=== PATIENT | female | born 1970 | race Caucasian/White ===

== ENCOUNTER 2021-09-10 21:53 | Emergency (ER) | payer OTHER ==
[~2021-09-10] VITALS: Ht 162.6 cm; Wt 88.0 kg
[2021-09-10 23:24] VITALS: BP 138/87
--- NOTE | 2021-09-10 23:45 | PHYS DOC ---
Past Medical History Past Surgical History: Cholecystectomy, Hysterectomy Additional Past Surgical Histo: LEFT SHOULDER, BLADDER Smoking Status: Never Smoker Alcohol Use: None General Adult EDM: Chief Complaint: WRIST PAIN HPI: HPI: Patient is a 51 year old female who presents with right-sided dorsal hand pain after falling earlier tonight. She has a large soft tissue swelling and contusion on the dorsum of her hand. Denies numbness or tingling. She denies wrist pain. She denies head injury, loss of consciousness, dizziness, denies motor weakness. No other injuries or complaints reported. No meds taken prior to arrival. She is right-hand dominant. Review of Systems: Review of Systems: Constitutional: Denies fever or chills. [] HENT: Denies nasal congestion or sore throat. [] Respiratory: Denies cough or shortness of breath. [] Cardiovascular: Denies chest pain or edema. [] GI: Denies abdominal pain, nausea, vomiting Musculoskeletal: Reports right dorsal hand pain, swelling and bruising. Denies wrist pain or other upper extremity pain Integument: Denies rash. [] Neurologic: Denies headache, focal weakness or sensory changes. [] Psychiatric: Denies depression or anxiety. [] Heart Score: C/O Chest Pain: No Risk Factors: Risk Factors: DM, Current or recent (<one month) smoker, HTN, HLP, family history of CAD, obesity. Risk Scores: Score 0 - 3: 2.5% MACE over next 6 weeks - Discharge Home Score 4 - 6: 20.3% MACE over next 6 weeks - Admit for Clinical Observation Score 7 - 10: 72.7% MACE over next 6 weeks - Early Invasive Strategies Allergies: Allergies: Allergies Coded Allergies Type Severity Reaction Last Updated Verified Sulfa (Sulfonamide Antibiotics) Allergy Unknown 09/10/21 Yes codeine Allergy Unknown 09/10/21 Yes Physical Exam: PE: Constitutional: Well developed, well nourished, no acute distress, non-toxic appearance. [] HENT: Normocephalic, atraumatic Cardiovascular: +2 radial pulse in the right upper extremity, cap refill is brisk Lungs & Thorax: Respirations are nonlabored Skin: Warm, dry, no erythema, no rash. Moderate to large ecchymosis of the dorsum of the right hand. No open wounds. Extremities: There is soft tissue swelling and ecchymosis of the dorsum of the right hand. No palmar involvement of swelling or contusion. Limited range of motion of all digits, mostly involving the MCP joints of the first second third and fourth digits, secondary to pain. No palpable crepitus or step-offs. No rotational deformities. Wrist is nontender, no snuffbox tenderness. No open wounds. Cap refill is brisk. Skin is warm and well-perfused appearing. Neurologic: Alert and oriented X 3, normal motor function, normal sensory function, no focal deficits noted. [] Psychologic: Anxious. Current Patient Data: Vital Signs: Vital Signs Date Time Temp Pulse Resp B/P (MAP) Pulse Ox O2 Delivery O2 Flow Rate FiO2 09/10/21 23:24 98.1 86 16 138/87 (104) 98 Room Air 98.1 EKG: EKG: [] Radiology/Procedures: Radiology/Procedures: IMAGING REPORT Signed PATIENT: ANDREZ VASQUEZ ACCOUNT: [id number] : 1970 LOCATION: ER AGE: 51 SEX: F EXAM STATUS: DEP ER ORD. PHYSICIAN: VERENICE MARTINEZ DO REASON: pain, injury PROCEDURE: HAND RIGHT 3V Examination: 3 views of the right hand HISTORY: History of pain, injury COMPARISON: None available FINDINGS: The alignment of the carpal joints grossly appears unremarkable. The alignment of the carpal metacarpal joints, metacarpophalangeal joints, interphalangeal joints grossly appears unremarkable. Mild soft tissue swelling identified dorsal to the mid metacarpal region likely soft tissue injury. IMPRESSION: 1. Mild soft tissue swelling identified dorsal to the mid metacarpal region likely soft tissue injury. 2. No acute osseous findings. Electronically signed by: Daniel Cristina MD (09/11/2021 2:56 AM) [id number] DICTATED and SIGNED BY: DANIEL CRISTINA MD DATE: 09/11/21 [id number] 0 Course & Med Decision Making: Course & Med Decision Making Pertinent Labs and Imaging studies reviewed. (See chart for details) IM morphine and p.o. Desmet given. Ice pack is given. She is placed in a volar splint for comfort. Sling is ordered. I discussed the findings, differential diagnosis and plan of care with her. No indication for further invasive exams or imaging at this time. Her injury seems to be most consistent with soft tissue contusion. I discussed home care instructions with her. She has an appointment scheduled with her PCP on 22 September, she may discuss this further at that time, and if symptoms of pain persist or worsen, she may want to discuss repeat outpatient imaging. Return precautions are given. Dragon Disclaimer: Dragon Disclaimer: This electronic medical record was generated, in whole or in part, using a voice recognition dictation system. Departure Departure Impression: Primary Impression: Contusion of right hand Qualified Codes: S60.221A - Contusion of right hand, initial encounter Disposition: HOME / SELF CARE / HOMELESS Condition: STABLE Referrals: GERI ROBBINS MD (PCP) Patient Instructions: Hand Contusion Additional Instructions: Use the medication as needed/as directed. Ice, elevate your hand at rest. Use the splint for comfort. Return immediately for new injury, more severe pain, more severe swelling, numbness, weakness or any other concerns. Please follow- up with your primary care physician at your scheduled appointment next month. If your symptoms persist for several weeks, you may require repeat imaging or x- ray. Scripts Hydrocodone Bit/Acetaminophen (HYDROCODONE-APAP 5-325 ) 1 Tab Tablet 1 TAB PO PRN Q6HRS PRN for PAIN, #20 TAB 0 Refills Prov: VERENICE MARTINEZ DO 09/11/21 VERENICE MARTINEZ DO Sep 10, 2021 23:44
[2021-09-11] MEDS ORDERED: MORPHINE SULFATE 4 MG/ML INJ. IM ONE
[2021-09-11] MEDS ORDERED: HYDR-2761 PO (00:44)
[2021-09-11] MEDS ORDERED: HYDROcodone/APAP 5/325MG 1 TAB TABLET PO ONE (00:45)
--- NOTE | 2021-09-11 02:58 | RAD ---
Examination: 3 views of the right hand HISTORY: History of pain, injury COMPARISON: None available FINDINGS: The alignment of the carpal joints grossly appears unremarkable. The alignment of the carpal metacarp al joints, metacarpophalangeal joints, interphalangeal joints grossly appears unremarkable. Mild soft tissue swelling identified dorsal to the mid metacarpal region likely soft tissue injury. IMPRESSION: 1. Mild soft tissue swelling identified dorsal to the mid metacarpal region likely soft tissue injur y. 2. No acute osseous findings. Electronically signed by: Daniel Escamilla MD (09/11/2021 2:56 AM) [id number]
== END 2021-09-11 00:57 | disposition home or self-care (01) ==
LOC: ER 21:53
DX: S60.221A Contusion of right hand, initial encounter (principal); Z88.2 Allergy status to sulfonamides; Z88.5 Allergy status to narcotic agent; W18.30XA Fall on same level, unspecified, initial encounter; Y93.89 Activity, other specified; Y92.89 Other specified places as the place of occurrence of the external cause; Y99.8 Other external cause status
CPT/HCPCS: 29125; 73130; 99284; J2270

== ENCOUNTER → 2021-10-09 | Outpatient (CLI) | payer OTHER ==
[2021-09-10 23:24] VITALS: BP 138/87
[~2021-10-09] MED LIST: HYDR-2761 PO
--- NOTE | 2021-10-11 11:10 | RAD ---
BILATERAL SCREENING MAMMOGRAM History: Routine screening. Comparison: None available. Technique: Routine 2D digital mammogram views were obtained bilaterally. Interpretation was assisted with the use of computer-aided detection. Findings: Breast Tissue Density C : The breasts are heterogeneously dense, which may obscure small masses. Right breast focal asymmetry, upper/inner quadrant (approximately 1:00) measuring 0.8 cm in between 1 1 and 12 cm from the nipple. Left breast asymmetry on the MLO view just below the nipple line measuri ng 0.6 cm 3 to 4 cm from the nipple. IMPRESSION: Right breast focal asymmetry and a left breast asymmetry, as detailed above, warranting further evalu ation with diagnostic mammography with the potential for ultrasound. Perform CC and MLO spot compress ion views on the right and an MLO spot compression view and 90 degree lateral on the left. Note is ma de that no comparison mammograms are available for review. If they are obtainable an addendum can be added to this report. BI-RADS Category 0: Incomplete: Need additional imaging evaluation. Patient information is entered into the reminder system with a target due date for the next screening mammogram. "Our facility is accredited by the [employer] Mammography Program." Electronically signed by: NATO GUY MD (10/11/2021 11:08 AM) [id number]
== END ==
LOC: MAMMO 09:03
PROVIDERS: ATTEND Physician Assistant
DX: Z12.31 Encounter for screening mammogram for malignant neoplasm of breast (principal)
CPT/HCPCS: 77067

== ENCOUNTER → 2021-10-13 | Outpatient (CLI) | payer OTHER ==
--- NOTE | 2021-10-13 17:24 | RAD ---
CLINICAL INDICATION: ANDREZ VASQUEZ, who is 51 years of age, presents for routine screening evaluation. COMPARISON: Prior mammographic imaging 05/23/15, 05/30/19, 10/09/21 TECHNIQUE: Diagnostic views of the bilateral breasts were obtained, utilizing digital technique. BREAST COMPOSITION: Category B: There are scattered fibroglandular densities. MAMMOGRAM FINDINGS: The previously described right focal asymmetry and left breast asymmetry are again seen on the spot c ompression views. Therefore ultrasound was performed. ULTRASOUND FINDINGS: Targeted ultrasound of the mammographic area of concern was performed. 6:00 position, 4 cm from the left nipple: A near anechoic mass of circumscribed margins and internal homogeneous low level echoes is present with parallel orientation and is of oval/round shape. There i s no internal vascularity on Doppler interrogation. It demonstrates posterior acoustic enhancement an d measures 0.5 cm. IMPRESSION: 1. Bilateral breast probably benign asymmetry for which follow up is recommended. RECOMMENDATION: In the absence of new clinical symptoms or change in physical exam, short term follow up diagnostic e xamination is recommended in 6 months to assess for interval stability. BIRADS 3: PROBABLY BENIGN Electronically signed by: Francisco Badillo MD (10/13/2021 5:21 PM) [id number]
== END ==
LOC: US 12:47
PROVIDERS: ATTEND Physician Assistant
DX: N63.24 Unspecified lump in the left breast, lower inner quadrant (principal)
CPT/HCPCS: 77066; 76641-50